=== PATIENT | male | born 1955 | race Caucasian/White ===

== ENCOUNTER → 2017-02-23 | Outpatient (CLI) | payer MEDICARE ==
[~2017-02-23] MED LIST: ALLOPURINOL300 MG PO; ARTHROTEC 75 751 ECT PO; ASPIRIN 81MG TA81 MG PO; CLOPIDOGREL75 M1 PO; COLCHICINE 0.60.6 MG OR; DARVOCET-N 1001 EACH PO; DICLOFENAC 50MG50 MG PO; ECOTRIN325 MG PO; FISH OIL CONC1000 MG PO; FISH OIL1000 MG PO; FUROSEMIDE40 MG PO; K-DUR 20MEQ TA20 MEQ PO; KAPIDEX60 MG PO; LEVOTHYROXIN0.025 MG PO; LISINOPRIL2.5 MG PO; MEDROL 4MG. DOSE4 MG PO; METOLAZONE 2.52.5 MG PO; MULTI VITAMINS1 TAB PO; NAPROXEN EC500 MG PO; PANTOPRAZOLE 40 MG PO; ULTRACET 325 MG1 TAB PO; ZETIA10 MG PO
--- NOTE | 2017-02-23 16:23 | RADIOLOGY REPORT PS360 ---
US [id number] HISTORY: FLANK PAIN ORDERING PHYSICIAN: Leandra Verde MD PATIENT AGE: 61 years COMPARISON: None FINDINGS: Incidental note made of gallstones RIGHT KIDNEY:10 x 5 x 6 cm. No hydronephrosis. 8 mm exophytic cyst projects off the mid aspect of the right kidney. LEFT KIDNEY:11 x 5 x 5 cm. Unremarkable appearance. IMPRESSION: 1. No hydronephrosis. 8 mm right renal cyst. 2. Cholelithiasis
--- NOTE | 2017-02-24 07:10 | RADIOLOGY REPORT PS360 ---
CT CHEST W/O CONTRAST HISTORY: Follow-up pulmonary nodule, solitary pulmonary nodule evaluation, follow-up abnormal chest CT 6 MONTH FOLLOW UP LUNG NODULE ORDERING PHYSICIAN: Leandra Verde MD PATIENT AGE: 61 years TECHNIQUE: Axial images obtained without contrast. 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 Coronary artery calcifications are present. There is normal heart size. No mediastinal or hilar mass is evident. There are few scattered small nodes in the axillae.. There is mild diffuse bronchial thickening. The previously noted left-sided pulmonary nodules are not apparent on today's study and may be inflammatory in nature. No suspicious pulmonary nodules evident. Previously noted 5 mm nodular opacity in the right lower lobe superior segment no longer apparent and may be inflammatory. There is a 2 mm nodular opacity in right upper lobe anteriorly probably present on the previous exam but not as apparent due to the motion artifact on the previous study. There is a mild reticulonodular appearance of the upper lobes. This pattern may have been present previously but not apparent due to the motion artifact. . No effusions or infiltrates. Upper abdominal images are unremarkable. No acute bony findings. IMPRESSION: 1. COPD with mild diffuse bronchial thickening and hyperinflation. 2. No suspicious pulmonary nodules apparent. 3. Suggest resuming low-dose screening CT in one year
== END ==
LOC: RAD 12:58
DX: R10.10 Upper abdominal pain, unspecified (principal); R91.1 Solitary pulmonary nodule

== ENCOUNTER → 2017-03-11 | Outpatient (CLI) | payer MEDICARE ==
--- NOTE | 2017-03-11 15:43 | RADIOLOGY REPORT PS360 ---
[id number] COMPARISON: Right ribs 01/22/2017 HISTORY: Follow-up rib fracture TECHNIQUE: PA chest and oblique views right ribs FINDINGS: The previously noted fracture right 10th rib now appears be essentially healed with little or no deformity. No other definite rib fracture seen. The right lung field is clear. IMPRESSION: Essentially healed fracture posterior aspect right 10th rib
== END ==
LOC: RAD 12:03
DX: S22.31XD Fracture of one rib, right side, subsequent encounter for fracture with routine healing (principal)